=== PATIENT | male | born 1955 | race Caucasian/White ===

== ENCOUNTER → 2017-10-27 | Outpatient (REF) | payer OTHER | LOC: ZZSENDIN 12:00 | PROVIDERS: ATTEND Family Medicine | DX: I78.1 Nevus, non-neoplastic (principal) | CPT/HCPCS: 88305 ==

== ENCOUNTER → 2018-09-30 | Outpatient (CLI) | payer BC ==
--- NOTE | 2018-09-30 22:49 | RADIOLOGY IMAGING REPORT ---
FACILITY: [facility] [place] PATIENT NAME: Bebo Teague : 1955 MR: [id number] V: [id number] EXAM DATE: ORDERING PHYSICIAN: NORM ONOFRE TECHNOLOGIST: Location: [facility] Patient: Bebo Teague : 1955 Visit/Account:[id number] Date of Sevice: 09/30/2018 INDICATION: Right shoulder pain. EXAM DATE: 09/30/2018 5:00 PM COMPARISON: None. FINDINGS: 3 views of the right shoulder. Mineralization is normal. No acute alignment abnormality or fracture. Minimal arthrosis at the glenohumeral acromioclavicular joints. Soft tissues are unremarkable. IMPRESSION: Minimal osteoarthrosis of the right shoulder. Report Dictated By: Cristo Perry MD at 09/30/2018 10:40 PM Report E-Signed By: Cristo Perry MD at 09/30/2018 10:42 PM WSN:[id number]
== END ==
LOC: RAD 16:55
PROVIDERS: ATTEND Family Medicine
DX: M19.011 Primary osteoarthritis, right shoulder (principal)